=== PATIENT | male | born 1955 | race Caucasian/White ===

== ENCOUNTER 2017-02-02 10:16 | Inpatient (IN) | payer OTHER ==
[2017-01-16 15:04] VITALS: BMI 33.0
--- NOTE | 2017-01-16 15:48 | PAT Medication Instructions ---
Service Date Jan 16, 2017. Current Home Medication List Cddxxne-Czsexixcpjbzd-Ytekedyg (Excedrin Extra Strength), 1-2 TAB PO PRN Agrocykuohc-Yzfxespomtz-Vfx C- (Glucosamine Chondroitin), Unknown Dose PO BID Medication Instructions For Your Scheduled Surgery - Hold the following medications 2 weeks prior to surgery: Sefbdvkrtrf-Ajezqmujtab-Ung C- (Glucosamine Chondroitin), Unknown Dose PO BID - Hold the following medications the morning of surgery: Trbgpez-Gvmxtrisvpiwz-Snpcsssz (Excedrin Extra Strength), 1-2 TAB PO PRN nothing to eat or drink after midnight. no chewing after midnight If you have any questions please call us at [phone] or [phone] or [phone]
[2017-01-16 16:20] LABS: BASO % 0.4 %; BASO ABS # 0.03 K/uL (0-0.2); COMPLETE YES; EOS % 0.9 %; HEMATOCRIT 45.4 % (42-52); IG% 0.3 %; LYMPH % 31.3 %; LYMPH ABS # 2.49 K/uL (1.2-3.4); MEAN CELL VOLUME 90.1 fL (80-100); MEAN CORPUSCULAR HEMOGLOBIN 31.5 pg (25-34); MEAN PLATELET VOLUME 10.1 fL (7.4-10.4); MONO % 9.8 %; NEUT % 57.3 %; PLATELET COUNT 249 K/uL (130-400); RED BLOOD COUNT 5.04 M/uL (4.7-6.1); WHITE BLOOD COUNT 7.96 K/uL (4.8-10.8)
[2017-01-16 16:30] LABS: INR 0.9 (0.9-1.1); PROTHROMBIN TIME (PATIENT) 9.7 SECONDS (9.0-12.0)
[2017-01-16 16:39] LABS: BLOOD UREA NITROGEN 12 mg/dl (7-18); C-REACTIVE PROTEIN < 0.29 mg/dl (0-0.29); CARBON DIOXIDE 28 mmol/L (21-32); CHLORIDE 106 mmol/L (98-107); CREATININE 1.11 mg/dl (0.60-1.40); GLUCOSE 89 mg/dl (70-99); POTASSIUM 4.1 mmol/L (3.5-5.1); SODIUM 139 mmol/L (136-145)
--- NOTE | 2017-01-27 22:44 | HISTORY & PHYSICAL EXAMINATION ---
DATE OF ADMISSION: 02/02/2017 CHIEF COMPLAINT: Right knee pain. HISTORY OF PRESENT ILLNESS: A 61-year-old gentleman, who is now about 11 months out from a left hip replacement, who presents for treatment of his right knee. He has got a long history of right knee pain and discomfort. He describes it has gotten worse over time. This increases the most with weightbearing activities. The more he walks, the more it hurts. The pain is mostly lateral. He also has a sense of instability in his knee like it is going to give away. The patient does have history of a knee arthroscopy in the past. No groin pain on the side. PAST MEDICAL HISTORY: 1. Arthritis. 2. Skin cancer. PREVIOUS SURGERIES: Include: 1. Bilateral knee scopes. 2. Left total hip replacement done on 02/23/2016. ALLERGIES: TO PENICILLIN. No respiratory problems with that. CURRENT MEDICATIONS: Include Excedrin. SOCIAL HISTORY: A 61-year-old male. He is . 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 Rare alcohol intake. He does chew tobacco. FAMILY HISTORY: Significant for prostate cancer and breast cancer. REVIEW OF SYSTEMS: Negative for diabetes, neurologic problems, vascular problems or bleeding disorders. He denies any chest pain or shortness of breath. No history of DVT or PE. PHYSICAL EXAMINATION: GENERAL: This is a fairly large, healthy-appearing, middle-aged male. He looks to be in pretty good shape. HEENT: Benign. NECK: Supple. No lymphadenopathy. LUNGS: Clear to auscultation. HEART: Has regular rate and rhythm. ABDOMEN: Soft, nontender and nondistended. EXTREMITIES: Grossly neurovascularly intact except as follows: Examination of the right knee reveals the patient ambulates with a slight valgus alignment to his knee. It is increased with weightbearing. He is tender both medially and laterally over the joint line. He has small knee effusion. Range of motion si 0-125. X-RAYS: X-rays of the right knee were reviewed. It shows advanced lateral compartment DJD. He has got complete loss of his lateral joint space on the 40-degree flexion films. It has progressed over the past year. ASSESSMENT: A 61-year-old male, 11 months out from a total hip replacement with advanced right knee lateral compartment degenerative joint disease. He has failed conservative treatment and would like to have his right knee replaced. PLAN: We talked about the treatment and he would like to proceed with knee replacement. The risks and benefits of total knee replacement were explained to the patient including but not limited to DVT, PE, , infection, neurological injury, vascular injury, bleeding problems, pain, limited range of motion, stiffness, failure to relieve symptoms, incomplete relief of symptoms, need for further surgery in the future, fracture, leg length inequality, nerve palsy, incomplete relief of symptoms, need for revision surgery, etc. The patient understands and desires to proceed. Informed consent was obtained. I did talk to him about the difficult recovery of knee replacement in comparison to hip surgery and he understands. The patient does apparently have some minor PENICILLIN REACTION. He has done well with Ancef before. We will give him Ancef preoperatively. Plan is to be discharged home and do outpatient therapy or home health.
[2017-02-02] VITALS (7 sets, daily range): BP systolic 123–163; BP diastolic 76–98; PULSE 50–74; TEMP 36.4–37.3; O2SAT 95–100; Ht 188 cm; Wt 116.7 kg
[~2017-02-02] VITALS: Ht 188 cm; Wt 116.7 kg
[~2017-02-02 10:16] MED LIST: ACETAMINOPHEN 500 MG TAB PO SCH; ASPI-391 PO; ATROPINE SULFATE 0.1 MG/ML 5ML SYR IV PRN; BUPIVACAINE 0.5 % 5 MG/1 ML PF 10ML VIAL ONE; BUPIVACAINE LIPOSOME 266 MG, BUPIVACAINE/EPINEPHRINE INJ 50 ML, SODIUM CHLORIDE 0.9% PF... INFIL SCH; CEFAZOLIN 2000MG IV PUSH 10 ML IV SCH; EpHEDrine SULFATE INJ 50 MG/ML AMP IV PRN; FAMOTIDINE 20 MG TAB PO SCH; GABAPENTIN 300 MG CAP PO SCH; GLUCTAB7 PO; HYDROmorphone INJ 2 MG/ML SYR/VIAL IV PRN; LACTATED RINGER'S 1000ML 1,000 ML IV SCH; LACTATED RINGER'S 1000ML 500 ML IV ONE; LACTATED RINGER'S 1000ML IV SCH; LACTATED RINGER'S 500 ML IV SCH; METOCLOPRAMIDE HCL 10 MG TAB PO SCH; ONDANSETRON INJ 2 MG/ML 2 ML VIAL IV PRN; PHENYLEPHRINE 100MCG/ML 5ML SYR IV PRN; ROPIVACAINE 0.5% 5 MG/ML 30 ML VIAL ONE; SCOPOLAMINE 1.5 MG TDSY TD SCH; TRANEXAMIC ACID INJ 1,000 MG in SYRINGE 0 ML IV SCH
--- NOTE | 2017-02-02 10:56 | History & Physical Bridge Note ---
H&P Re-Evaluation Bridge Note: I have examined the patient, reviewed the History & Physical and in the interval since the performance of the History & Physical I have noted the following changes of clinical significance: No changes noted
[2017-02-02] MEDS ORDERED: MIDAZOLAM HCL 1 MG/ML 2ML VIAL ONE (12:10)
[2017-02-02] MEDS ORDERED: FENTANYL CITRATE INJ 50 MCG/1 ML 2 ML VIAL ONE (12:11)
[2017-02-02] MEDS ORDERED: BUPIVACAINE LIPOSOME 1/3% 266 MG/20 ML VIAL INFIL ONE (13:21)
[2017-02-02] MEDS ORDERED: SODIUM CHLORIDE 0.9% PF 50 ML VIAL ONE (13:21)
[2017-02-02] MEDS ORDERED: BACITRACIN 50000 UNIT VIAL ONE (13:21)
[2017-02-02] MEDS ORDERED: BUPIVACAINE/EPINEPHRINE 0.25% 1:200,000 30 ML VIAL ONE (13:21)
[2017-02-02] MEDS ORDERED: PROPOFOL IV EMULSION 10 MG/ML 20 ML VIAL IV ONE ×2 (14:10→15:18)
--- NOTE | 2017-02-02 15:29 | [facility] Post Operative Brief Note ---
Immediate Operative Summary Operative Date Feb 02, 2017. Pre-Operative Diagnosis Advanced Right Knee Degenerative Joint Disease Post-Operative Diagnosis Advanced Right Knee Degenerative Joint Disease Procedure(s) Performed Right Total Knee Arthroplasty Surgeon Dr. Scanlon Drafter [employer] Design Layout Surgeon(s) PAT Negrete Estimated Blood Loss 50ML Findings Right Knee DJD Fluids (cc crystalloids) 2000 cc Specimens A. Right Knee Bone and Tissue Drains None Anesthesia Spinal Complication(s) None Disposition Recovery Room / PACU
[2017-02-02] MEDS ORDERED: METOCLOPRAMIDE HCL INJ 5 MG/ML 2 ML VIAL IV PRN (15:30)
[2017-02-02] MEDS ORDERED: ALUMINUM/MAGNESIUM/SIMETH (MAALOX MAX) 30 ML UDC PO PRN (15:30)
[2017-02-02] MEDS ORDERED: MoRPHine SULFATE 2 MG/ML CARP IV PRN (15:30)
[2017-02-02] MEDS ORDERED: BISACODYL 10 MG SUPP PR PRN (15:30)
[2017-02-02] MEDS ORDERED: SILVER SULFADIAZINE 1% CR 50 GM JAR EXT PRN (15:30)
[2017-02-02] MEDS ORDERED: ZOLPIDEM TARTRATE 5 MG TAB PO PRN (15:30)
[2017-02-02] MEDS ORDERED: DiphenhydrAMINE HCL 50 MG/ML VIAL IV PRN (15:30)
[2017-02-02] MEDS ORDERED: ONDANSETRON INJ 2 MG/ML 2 ML VIAL IV PRN (15:30)
[2017-02-02] MEDS ORDERED: MAGNESIUM HYDROXIDE SUSP 30 ML UDC PO PRN (15:30)
[2017-02-02] MEDS: CHECK SCOPOLAMINE PATCH PLACEMENT SCH (16:00)
--- NOTE | 2017-02-02 16:08 | Anesthesiology Progress Note ---
Anesthesia Post Op Note Date & Time Feb 02, 2017 at 16:08 Vital Signs Pain Intensity: 0 Vital Signs Past 12 Hours Date Time Temp Pulse Resp B/P (MAP) Pulse Ox O2 Delivery O2 Flow Rate FiO2 02/02/17 16:02 62 16 02/02/17 16:02 62 16 100 02/02/17 16:01 133/81 02/02/17 15:57 59 18 100 02/02/17 15:57 58 18 02/02/17 15:56 138/89 02/02/17 15:52 63 16 02/02/17 15:52 64 16 100 02/02/17 15:51 61 18 144/87 100 02/02/17 15:51 59 18 02/02/17 15:46 61 21 132/92 100 02/02/17 15:46 62 21 02/02/17 15:41 67 14 02/02/17 15:41 68 14 143/91 100 02/02/17 15:36 36.8 69 14 145/91 100 Oxymask 10 02/02/17 15:36 68 13 02/02/17 15:36 68 13 145/91 100 02/02/17 11:05 36.6 59 20 163/98 97 Room Air Notes Mental Status: alert / awake / arousable, participated in evaluation Pt Amnestic to Procedure: Yes Nausea / Vomiting: adequately controlled Pain: adequately controlled Airway Patency, RR, SpO2: stable & adequate BP & HR: stable & adequate Hydration State: stable & adequate Neuraxial Anesthesia: was administered, sensory block is resolving Anesthetic Complications: no major complications apparent
--- NOTE | 2017-02-02 16:32 | DIAGNOSTIC IMAGING REPORT ---
RIGHT KNEE 2 VIEWS History: Right total knee arthroplasty. Degenerative arthritis. Postop. FINDINGS: The patient is status post a right total knee arthroplasty. The hardware is intact. No fracture or dislocation. Skin guillermo are in place. IMPRESSION: Right total knee arthroplasty. No evidence for hardware complication. Electronically signed by: Simeon Nicholson M.D. 02/02/2017 4:30 PM Dictated Date/Time: 02/02/2017 4:29 PM
[2017-02-02] MEDS: OXYCODONE HCL IR 5 MG TAB (IMMEDIATE RELEASE) PO PRN (19:07)
[2017-02-02] MEDS: D5W AND 1/2NSS + 20MEQ KCL 1,000 ML IV SCH (19:08)
[2017-02-02] MEDS: FERROUS GLUCONATE 324 MG TAB PO SCH (19:09)
[2017-02-02] MEDS ORDERED: CEFAZOLIN IV 2,000 MG in SYRINGE 0 ML IV SCH (20:00)
[2017-02-02] MEDS: CEFAZOLIN IV 2,000 MG in SYRINGE 0 ML IV SCH (21:11)
[2017-02-02] MEDS: ASPIRIN 325 MG ECTAB PO SCH (21:12)
[2017-02-02] MEDS: DOCUSATE SODIUM 100 MG CAP PO SCH (21:12)
[2017-02-02] MEDS: SENNA 8.6 MG TAB PO SCH (21:12)
[2017-02-02] MEDS: TAPENTADOL ER 50 MG TABCR PO SCH (21:13)
[2017-02-02] MEDS: ACETAMINOPHEN 500 MG TAB PO SCH (21:13)
[2017-02-02] MEDS: KETOROLAC TROMETHAMINE 30 MG/ML VIAL IV. SCH (21:16)
[2017-02-02] MEDS ORDERED: TRANEXAMIC ACID INJ 1,000 MG in SODIUM CHLORIDE 0.9% 100ML 100 ML IV SCH (22:00)
--- NOTE | 2017-02-02 22:11 | OPERATIVE REPORT ---
DATE OF OPERATION: 02/02/2017 SURGEON: Ashkan Scanlon MD. MAIN ENTREE COOK AND CASHIER: PAT Harrington. PREOPERATIVE DIAGNOSIS: Right knee degenerative joint disease. POSTOPERATIVE DIAGNOSIS: Same. PROCEDURE PERFORMED: Right cemented posterior stabilized total knee arthroplasty. COMPLICATIONS: None. ESTIMATED BLOOD LOSS: 50 mL FLUID REPLACEMENT: 2000 mL crystalloid fluid replacement. ANESTHESIA: Spinal with adductor canal block. DRAINS: None. SPECIMENS: Right knee sent for pathology. TOURNIQUET TIME: 60 minutes at 300 mmHg. OPERATIVE INDICATIONS: The patient is a 61-year-old male who has had a fairly long history of bilateral knee pain and discomfort, right side a bit worse than the left. He has a history of knee arthroscopy in both knees in the past. He developed persistent progressive knee pain, unresponsive to conservative treatment. He had pretty isolated lateral compartment arthritis. The patient elected to proceed with surgical treatment. OPERATIVE FINDINGS: Operative findings revealed advanced right knee lateral compartment DJD. He had grade 4 vuys-xj-bytt disease of the posterior lateral femoral condyle as well as the lateral tibial plateau. The remainder of his knee joint was fairly well preserved. He had slight valgus alignment to his knee. Moderate-sized knee joint effusion. OPERATIVE IMPLANTS: Operative implants consisted of: 1. A Biomet Vanguard size 72.5 right posterior stabilized femoral component. 2. Biomet size 79 tibial tray. 3. A 14 mm posterior stabilized polyethylene insert. 4. A 34 x 8.5 all poly patella. OPERATIVE PROCEDURE: The patient taken to the operating room, identified and placed on the operating table in supine position. All contact areas were appropriately padded. IV antibiotics were provided by anesthesia team. A spinal anesthetic and adductor canal block had been provided in the holding area. Simental catheter was placed in sterile fashion. A right thigh tourniquet was then placed and the right lower extremity was then prepped and draped in usual sterile fashion. The right leg was elevated and exsanguinated with Esmarch and tourniquet was placed at 300 mmHg. An anterior approach to the right knee was then performed through a longitudinal incision centered over the patella. Sharp dissection was carried out through the subcutaneous tissues down to the level of the extensor mechanism. A medial parapatellar arthrotomy incision was made. Subperiosteal dissection was carried out medially. The fat pad was resected from beneath the patellar tendon. Lateral patellofemoral ligament was released. Patella was everted and knee was flexed. The osteophytes were taken off the distal femur. The ACL and PCL were then released from the distal femur and the tibia subluxated anteriorly. External tibial alignment jig was then placed on the anterior face of the tibia and adjusted 14 mm medially. Proximal tibial cut was made to remove about 3-4 mm of bone from the medial side. Tibia was sized to a size 79. Attention was then drawn to the femur. The distal femur was entered with a sharp drill bit. Intramedullary canal was suctioned. A right 5-degree valgus cutting guide was placed. Distal femoral cutting block was pinned in place. Distal femoral cut was made to take an additional 3 mm of bone off the distal femur. The femur was then sized to a size 72.5. I did downsize this just slightly. The AP cutting block was pinned parallel to the epicondylar axis which was 4 degrees of external rotation. The anterior cut, anterior chamfer, posterior cut, posterior chamfer cuts were made. Box cutting guide was placed and adjusted slightly lateral and a box cut was made. The knee was flexed. The remnants of the medial and lateral menisci were excised. The osteophytes were taken off the posterior aspect of the femur. I did release the popliteus tendon in order to equalize the flexion gap. There was no IT band release needed. The trial femoral component was placed. Tibial tray was pinned in maximum external rotation, and drill and stem punch were used to create defect in proximal tibia for the tibial tray. The knee was then trialed and the 14 mm insert fit most appropriately. Of note, this patient did have some degree of hyperextension of his knee preoperatively. Attention was then drawn to the patella. Patella was cleaned of all soft tissues. Patellar thickness measured 26 mm, was cut down to 14. It was sized to a size 34 patella. Lug holes were drilled for a 34 patella. Lateral osteophyte was removed. Patella button was placed. Knee was taken through range of motion and the patella tracked nicely with no thumbs test. Attention was then drawn toward placement of the permanent components. All trial components were removed. A bone plug was placed in the distal femur to limit blood loss. A double batch of Palacos G cement was mixed. A size 72.5 right posterior stabilized femoral component, a size 79 tibial tray, a 14 mm posterior stabilized polyethylene insert, and a 34 x 8.5 all poly patella then cemented in place. Knee was brought out into full extension until cement hardened. A final cement check was then performed. Pericapsular tissues were injected with a total of 100 mL of a combination of 20 mL of Exparel, 30 mL of normal saline, and 50 mL of 0.25% Marcaine with epinephrine. The patient also received a gram of tranexamic acid. The tourniquet was then let down for a tourniquet time of 60 minutes. Hemostasis was assured with use of electrocautery. The wound was once again irrigated. The extensor mechanism was then closed with a combination of #1 PDS suture and #1 Vicryl suture in a [id number]-jknst fashion. Extensor mechanism was checked and found to be intact. The subcutaneous tissues were then closed with 2-0 Dexon suture in a buried interrupted fashion. Skin was closed with skin guillermo. Leg was then cleaned and dried, and a sterile dressing of Xeroform, 4 x 4's, sterile cast padding and Rusty bandage was applied. The patient was then transferred to the recovery room in stable condition. The patient tolerated the procedure well with no complications. All needle and sponge counts were correct at the end of the operation. I attest to the content of the Intraoperative Record and any orders documented therein. Any exception s are noted below.
[2017-02-03] MEDS: D5W AND 1/2NSS + 20MEQ KCL 1,000 ML IV SCH ×3 (02:33→12:34)
[2017-02-03 03:50] VITALS: BP 137/72; PULSE 58; TEMP 37; O2SAT 97
[2017-02-03] MEDS: KETOROLAC TROMETHAMINE 30 MG/ML VIAL IV. SCH ×4 (03:58→21:30)
[2017-02-03 05:34] LABS: MEAN CELL VOLUME 91.8 fL (80-100); MEAN CORPUSCULAR HEMOGLOBIN 30.4 pg (25-34); MEAN CORPUSCULAR HGB CONC 33.1 g/dl (32-36); MEAN PLATELET VOLUME 10.3 fL (7.4-10.4); PLATELET COUNT 183 K/uL (130-400); RED BLOOD COUNT 4.25 M/uL (4.7-6.1); WHITE BLOOD COUNT 10.05 K/uL (4.8-10.8)
[2017-02-03] MEDS: ACETAMINOPHEN 500 MG TAB PO SCH ×3 (05:39→21:25)
[2017-02-03] MEDS: CEFAZOLIN IV 2,000 MG in SYRINGE 0 ML IV SCH (05:39)
[2017-02-03 06:04] LABS: BUN/CREATININE RATIO 11.1 (10-20); CALCIUM 7.5 mg/dl (8.5-10.1); CREATININE 1.09 mg/dl (0.60-1.40); POTASSIUM 4.2 mmol/L (3.5-5.1)
[2017-02-03 07:50] VITALS: BP 121/72; PULSE 52; TEMP 37.1; O2SAT 97
[2017-02-03] MEDS: CHECK SCOPOLAMINE PATCH PLACEMENT SCH ×3 (08:14→16:36)
[2017-02-03] MEDS: FERROUS GLUCONATE 324 MG TAB PO SCH ×3 (08:15→18:06)
[2017-02-03] MEDS: TAPENTADOL ER 50 MG TABCR PO SCH ×2 (08:15→20:41)
[2017-02-03] MEDS: DOCUSATE SODIUM 100 MG CAP PO SCH ×2 (08:15→20:41)
[2017-02-03] MEDS: PANTOprazole SOD 40 MG TAB PO SCH (08:15)
[2017-02-03] MEDS: MULTIVITAMIN TAB PO SCH (08:16)
[2017-02-03] MEDS: ASPIRIN 325 MG ECTAB PO SCH ×2 (08:16→20:41)
--- NOTE | 2017-02-03 08:36 | PROGRESS NOTE ---
DATE: 02/03/2017 SUBJECTIVE: A 61-year-old gentleman postop day #1 from a right knee replacement. He is doing pretty well. He had a pretty good night. Pain has been manageable. No chest pain or shortness of breath. Not feeling dizzy or lightheaded. OBJECTIVE: VITAL SIGNS: Temperature 37.1. Vital signs stable. GENERAL: Physical examination reveals a healthy, pleasant, middle-aged male. He is sitting up in bed and looks quite comfortable. LUNGS: Clear to auscultation. HEART: Regular rate and rhythm. ABDOMEN: Soft, nontender, and nondistended. EXTREMITIES: Grossly neurovascularly intact except as follows: Examination of the right leg reveals the dressing to be clean, dry and intact. Leg is well aligned. He can dorsiflex and plantarflex his foot appropriately. He is neurologically intact. LABORATORY DATA: Hemoglobin 12.9 and hematocrit 39.0. Electrolytes are stable. ASSESSMENT: A 61-year-old gentleman postop day #1 from right knee replacement, doing pretty well. Pain is controlled. He is neurologically intact. PLAN: 1. DVT prophylaxis including thigh-high TEDs, SCDs, and aspirin twice a day. 2. PT/OT. Weightbear as tolerated. Right total knee protocol. 3. Pain control. Doing pretty well with current pain regimen. 4. Disposition: He is planning to be discharged to home. I think, he is going to do outpatient therapy upon discharge.
[2017-02-03] MEDS ORDERED: MORP-157 PO (08:38)
[2017-02-03] MEDS ORDERED: ACET-24 PO (08:38)
[2017-02-03] MEDS ORDERED: ASPEC325 PO (08:38)
[2017-02-03] MEDS ORDERED: RXC5 PO (08:38)
--- NOTE | 2017-02-03 08:40 | Discharge Instructions ---
Discharge Instructions Date of Service Feb 03, 2017. Admission Reason for Admission: Right Knee Degenerative Joint Disease Discharge Discharge Diagnosis / Problem: Right Knee Replacement Discharge Goals Goal(s): Decrease discomfort, Improve function, Increase independence, Improve disease control, Therapeutic intervention Activity Recommendations Activity Limitations: per Instructions/Follow-up section Weightbearing Status: Right weightbearing . Instructions / Follow-Up Instructions / Follow-Up ACTIVITY RECOMMENDATIONS: Physical Therapy: * You will go to physical therapy three times each week for four to six weeks after your surgery in order to regain your knee range of motion and to retrain your knee to work properly. * It is just as important to make sure you are getting your knee perfectly straight as it is to regain your knee bend. * Taking a pain pill an hour before therapy can help you have a more productive and comfortable therapy session. Home Exercise: * You were shown a series of exercises (heel props, heel slides, etc.) in the hospital. Do these exercises three to four times each day including the exercises you were shown in physical therapy. Walking: * Get up and walk several times each day. For the first four weeks, try not to stand or walk for more than one hour at a time. If you do stand or walk for more than one hour, you will not hurt anything, but your knee and leg will likely swell. * As you feel comfortable, you may change from the walker or crutches to a cane and then to independent walking. MEDICATIONS: New Medicine: * You will likely be taking one or more of these medications: 1. MS Contin - A long-acting pain medication. Take 1 tablet twice a day for the first ten days to decrease your baseline level of pain. 2. Oxycodone - A quick and shorter-acting pain medication. Take one to two tablets every four to six hours to lessen your pain. 3. Aspirin - Thins your blood to lessen the chance of forming a blood clot. * The most common side effects of pain medicine and iron are nausea and constipation. If nausea or constipation is too much of a problem or if you have any questions about your new medicines or doses, call [facility] at [phone]. We will try to help you manage these issues. VERY IMPORTANT TO READ AND REVIEW" Pain: * The immediate post-operative period after knee replacement surgery is often quite painful. * You are given a prescription for pain medicine. You should take it, as directed, when you need it, especially before physical therapy and before going to bed. Pain that interferes with sleep is very common and can last several months. * You will likely need pain medicine for the first four to six weeks. It will not stop all of the pain. The pain will lessen and as you feel better, you may change to milder pain medicine such as Tylenol. * The most common side effects of pain medicine are nausea and constipation, so don't take more than you need. SPECIAL CARE INSTRUCTIONS: TEDs/Elastic Stockings: * The white elastic stockings help limit swelling and prevent blood clots from forming in your legs. The more you wear them, the more they work. * Wear them for six weeks after knee replacement surgery and four weeks after partial knee replacement. Prevention of Infection: * Take antibiotics one hour before any dental cleaning, dental work, urological procedure, gastrointestinal procedure or any invasive surgery in order to prevent your new joint from getting infected. * You may get the antibiotics from the doctor performing the procedure or you may call our office at before and we will call in a prescription to the pharmacy of your choice. Things to Watch For: * Drainage from the incision site that occurs more than one week after your surgery. * Severely increased knee/leg pain or swelling. * Increased redness at the incision site. * Fever above 102 degrees Fahrenheit. * Unusual chest pain or shortness of breath. * Unusual pain or burning with urination. Call [facility] at with any of the above problems or if you have any questions about your medicines or recovery. FOLLOW UP VISIT: Make an appointment to see your doctor for approximately two weeks after surgery for a progress check and staple removal by calling the office at . Current Hospital Diet Patient's current hospital diet: Regular Diet Discharge Diet Recommended Diet: Regular Diet Procedures Procedures Performed: Right Total Knee Arthroplasty Pending Studies Studies pending at discharge: no Medical Emergencies . Who to Call and When: Medical Emergencies: If at any time you feel your situation is an emergency, please call [phone] immediately. . Non-Emergent Contact Non-Emergency issues call your: Surgeon . "Provider Documentation" section prepared by Ashkan Scanlon. . VTE Core Measure Inpt VTE Proph given/why not?: Other Anticoagulation, T.E.D. Stockings, SCD's
[2017-02-03] MEDS: OXYCODONE HCL IR 5 MG TAB (IMMEDIATE RELEASE) PO PRN (14:13)
[2017-02-03 15:11] VITALS: BP 160/76; PULSE 61; TEMP 37.2; O2SAT 96
[2017-02-03 16:30] VITALS: O2SAT 96
[2017-02-03 17:22] VITALS: BP 151/83
[2017-02-03] MEDS: SENNA 8.6 MG TAB PO SCH (20:41)
[2017-02-03 23:39] VITALS: BP 157/87; PULSE 69; TEMP 36.9; O2SAT 94
[2017-02-04] MEDS: CHECK SCOPOLAMINE PATCH PLACEMENT SCH ×2 (00:42→07:26)
[2017-02-04] MEDS: KETOROLAC TROMETHAMINE 30 MG/ML VIAL IV. SCH ×2 (04:23→10:00)
[2017-02-04 06:13] VITALS: BP 152/78; PULSE 81; TEMP 36.6; O2SAT 93
[2017-02-04] MEDS: ACETAMINOPHEN 500 MG TAB PO SCH (06:21)
[2017-02-04] MEDS: PANTOprazole SOD 40 MG TAB PO SCH (07:27)
[2017-02-04] MEDS: FERROUS GLUCONATE 324 MG TAB PO SCH (07:27)
[2017-02-04] MEDS: MULTIVITAMIN TAB PO SCH (07:27)
[2017-02-04] MEDS: TAPENTADOL ER 50 MG TABCR PO SCH (07:29)
[2017-02-04] MEDS: DOCUSATE SODIUM 100 MG CAP PO SCH ×2 (07:54→08:38)
[2017-02-04] MEDS: ASPIRIN 325 MG ECTAB PO SCH ×2 (07:55→08:38)
[2017-02-04 09:36] VITALS: BP 152/78; PULSE 81; TEMP 36.6; O2SAT 93
[2017-02-04 09:41] VITALS: BP 152/78; PULSE 81; O2SAT 93
[2017-02-04] MEDS: OXYCODONE HCL IR 5 MG TAB (IMMEDIATE RELEASE) PO PRN (10:03)
--- NOTE | 2017-02-04 10:15 | PROGRESS NOTE ---
DATE: 02/04/2017 SUBJECTIVE: A 61-year-old gentleman, postop day 2 from a right knee replacement. He is doing pretty well. Anxious to get home. No chest pain, no shortness of breath. Not feeling dizzy or lightheaded. OBJECTIVE: VITAL SIGNS: Temperature 36.6. Vital signs stable. GENERAL: Reveals an elderly pleasant, middle-aged male. He is sitting up in his bedside chair and looks pretty comfortable. EXTREMITIES: Examination of the right leg reveals the dressing to be clean, dry and intact. Mild swelling. He can dorsiflex and plantarflex his foot appropriately. He is neurologically intact. ASSESSMENT: A 61-year-old gentleman, postop day 2 for right knee replacement, doing pretty well. PLAN: 1. DVT prophylaxis including thigh-high TEDs, SCDs, and aspirin twice a day. 2. PT/OT. Weight bear as tolerated. Right total knee protocol. 3. Pain control, doing well with current pain regimen. 4. Disposition. Plan to discharge to home. He is going to do home health for the first 2 weeks.
--- NOTE | 2017-02-06 14:32 | DISCHARGE SUMMARY ---
ADMITTING PHYSICIAN AND SURGEON: Dr. Scanlon. ADMITTING DIAGNOSIS: Right knee degenerative joint disease. SURGERY PERFORMED: Right total knee arthroplasty. SECONDARY DIAGNOSES: Include arthritis and skin cancer. CONSULTS: None obtained. HISTORY AND PHYSICAL EXAMINATION: Well documented in the patient's chart. HOSPITAL COURSE: The patient was admitted on 02/02/2017, underwent total knee arthroplasty, tolerated the procedure well. There were no complications. He was transferred to the PACU postoperatively and later to the orthopedic floor for further care. He was given Ancef for antibiotic prophylaxis, MARÍA ELENA stockings, SCDs and aspirin for DVT prophylaxis. Hemoglobin, hematocrit and vital signs were monitored during hospital stay, remained stable, did not require any blood transfusions. There were no complications. By postoperative day 2, he was tolerating a general regular diet. Pain was controlled with oral pain medicine. He was participating in physical therapy and had no signs or symptoms of deep vein thrombosis. On postop day 2, he was discharged home and set up with home health services, given printed discharge instructions including new prescriptions for Extra Strength Tylenol, aspirin 325 mg b.i.d., MS Contin and oxycodone. Continue home medications, continue physical therapy, weightbearing as tolerated, MARÍA ELENA stockings. Follow up in 10-12 days or sooner if there are any problems or concerns.
== END 2017-02-04 10:49 | disposition home health service (06) | DRG 470 ==
LOC: C.ACU 10:16 → C.3E 15:33 → ENRESERV 15:54
PROVIDERS: ADMIT Orthopaedic Surgery Sports Medicine; ATTEND Orthopaedic Surgery Sports Medicine
PROC: 0SRC0J9 Replacement of Right Knee Joint with Synthetic Substitute, Cemented, Open Approach (ICD-10-PCS; principal; 2017-02-02 13:00)
DX: M17.11 Unilateral primary osteoarthritis, right knee (principal); F17.220 Nicotine dependence, chewing tobacco, uncomplicated; Z96.642 Presence of left artificial hip joint; E66.9 Obesity, unspecified; Z68.33 Body mass index [BMI] 33.0-33.9, adult; Z85.828 Personal history of other malignant neoplasm of skin; Z88.0 Allergy status to penicillin; Z80.42 Family history of malignant neoplasm of prostate; Z80.3 Family history of malignant neoplasm of breast